=== PATIENT | male | born 1930 | race Caucasian/White ===

== ENCOUNTER 2017-07-28 15:02 | Emergency (ER) | payer OTHER, BC ==
[~2017-07-28] VITALS: Ht 172.7 cm; Wt 79.8 kg
[~2017-07-28 15:02] MED LIST: ALEVE220 MG PO; ALKA-SELTZER O1 EACH PO; ASPIRIN81 M1 PO; ASPIRIN81 M2 PO; ENALAPRIL MALEA10 MG PO; LIPITOR80 MG PO; Lipitor PO; METOPROLOL TART25 MG PO; MOTRIN600 MG PO; NYQUIL D COLD295 ML PO; PRAVASTATIN SOD40 MG PO; VASOTEC20 MG PO; Vasotec PO
[2017-07-28 15:51] LABS: HEMATOCRIT 41.1 % (38.0-50.0); HEMOGLOBIN 14.1 G/DL (12.5-16.6); MCH 30.6 PG (29.0-34.0); MCHC 34.3 G/DL (30.0-36.0); MCV 89.2 FL (86-99); PLATELET COUNT 166 K/uL (156-360); RBC DIS.WIDTH-CV 13.3 % (11.8-14.6); RBC DIS.WIDTH-SD 43.6 % (39-53); RED BLOOD COUNT 4.61 M/uL (4.00-5.50)
[2017-07-28 16:00] LABS: CHLORIDE 105 mEq/L (99-109); SODIUM 139 mEq/L (136-147)
[2017-07-28 16:02] LABS: GLUCOSE 97 mg/dL (70-99)
[2017-07-28 16:06] LABS: CREATININE 0.8 mg/dL (0.6-1.3); GFR ESTIMATE (CALCULATED) > 59 mL/min/ (58.99-99999)
[2017-07-28 16:07] LABS: UREA NITROGEN (BUN) 13 mg/dL (9-23)
[2017-07-28 16:11] LABS: TROP-I INTERPRETATION NEGATIVE; TROPONIN-I 0.06 ng/mL (0.0-0.30)
[2017-07-28] MEDS ORDERED: FLEXERIL10 MG PO (16:22)
[2017-07-28 17:10] VITALS: BP 185/90
== END 2017-07-28 17:12 | disposition home or self-care (01) ==
LOC: EME 15:02
PROVIDERS: Emergency Medicine Emergency Medical Services
DX: S29.011A Strain of muscle and tendon of front wall of thorax, initial encounter (principal); M54.9 Dorsalgia, unspecified; X58.XXXA Exposure to other specified factors, initial encounter; I10 Essential (primary) hypertension; I25.2 Old myocardial infarction; Z95.0 Presence of cardiac pacemaker; Z95.1 Presence of aortocoronary bypass graft; Z86.73 Personal history of transient ischemic attack (TIA), and cerebral infarction without residual deficits; Z79.82 Long term (current) use of aspirin; I45.10 Unspecified right bundle-branch block
CPT/HCPCS: 71046; 80048; 84484; 85027; 93005; 99281; 99284

== ENCOUNTER 2017-11-09 16:45 | Inpatient (IN) | payer OTHER, BC ==
[~2017-11-09] VITALS: Ht 172.7 cm; Wt 74.5 kg
[~2017-11-09 16:45] MED LIST changes: +FLEXERIL10 MG PO
[2017-11-09 17:22] LABS: HEMATOCRIT 40.9 % (38.0-50.0); HEMOGLOBIN 14.2 G/DL (12.5-16.6); MCH 31.1 PG (29.0-34.0); MCHC 34.7 G/DL (30.0-36.0); MCV 89.5 FL (86-99); PLATELET COUNT 183 K/uL (156-360); RBC DIS.WIDTH-CV 13.5 % (11.8-14.6); RBC DIS.WIDTH-SD 44.2 % (39-53); RED BLOOD COUNT 4.57 M/uL (4.00-5.50); WHITE BLOOD COUNT 6.9 K/uL (4.1-10.2)
[2017-11-09 17:37] LABS: ALBUMIN 4.1 g/dL (3.2-4.8)
[2017-11-09 17:38] LABS: CHLORIDE 103 mEq/L (99-109); POTASSIUM 4.5 mEq/L (3.7-5.4); SODIUM 139 mEq/L (136-147)
[2017-11-09 17:40] LABS: GLUCOSE 108 mg/dL (70-99)
[2017-11-09 17:42] LABS: TOTAL BILIRUBIN 1.5 mg/dL (0.0-1.0)
[2017-11-09 17:43] LABS: ALKALINE PHOSPHATASE 184 IU/L (3-129)
[2017-11-09 17:44] LABS: CREATININE 0.9 mg/dL (0.6-1.3); GFR ESTIMATE (CALCULATED) > 59 mL/min/ (58.99-99999)
[2017-11-09 17:45] LABS: AST (GOT) 22 IU/L (2-34); UREA NITROGEN (BUN) 15 mg/dL (9-23)
[2017-11-09 17:46] LABS: ALT (GPT) 21 IU/L (3-49)
[2017-11-09 17:47] LABS: LIPASE 8 U/L (1.0-51.0)
[2017-11-09 18:40] LABS: TROP-I INTERPRETATION NEGATIVE; TROPONIN-I 0.04 ng/mL (0.0-0.30)
[2017-11-09] MEDS ORDERED: CARVEDILOL3.125 MG PO (19:39)
[2017-11-09] MEDS ORDERED: BUSPIRONE HCL5 MG PO (19:39)
[2017-11-09] MEDS ORDERED: ALEVE220 MG PO (19:40)
[2017-11-09] MEDS ORDERED: LIDODERM 5% P1 PATCH TD (19:40)
[2017-11-09 23:09] LABS: IRON 53 MCG/DL (35-150); TRANSFERRIN (TIBC) 212.1 mg/dL (215-380); TRANSFERRIN SATUR. 25 % (20-55)
[2017-11-10] VITALS: BP 152/77
[2017-11-10 00:07] LABS: APPEARANCE CLEAR ((CLEAR)); BILIRUBIN NEGATIVE; BLOOD NEGATIVE; COLOR YELLOW ((YELLOW)); GLUCOSE (STRIP) NEGATIVE; KETONES NEGATIVE; LEUKOCYTES NEGATIVE; NITRITE NEGATIVE; PROTEIN (STRIP) NEGATIVE; SPECIFIC GRAVITY 1.039 (1.000-1.030); UCUL ADDED? NO; UROBILINOGEN 0.2 MG/DL (0.2-1.0)
[2017-11-10 00:15] VITALS: BP 152/77
[2017-11-10 03:45] VITALS: BP 129/73
[2017-11-10 06:15] LABS: BASOPHIL (%) 0.4 % (0-1); EOSINOPHIL (%) 2.7 % (0-5); EOSINOPHIL COUNT 0.1 K/uL (0-0.3); HEMATOCRIT 38.7 % (38.0-50.0); HEMOGLOBIN 12.8 G/DL (12.5-16.6); IMMATURE GRANULOCYTE (%) 0.2 % (0.0-0.7); LYMPHOCYTE (%) 28.4 % (15-42); LYMPHOCYTE COUNT 1.5 K/uL (1.0-2.8); MCH 29.7 PG (29.0-34.0); MCHC 33.1 G/DL (30.0-36.0); MCV 89.8 FL (86-99); MONOCYTE (%) 6.8 % (3-12); MONOCYTE COUNT 0.4 K/uL (0-0.8); NEUTROPHIL (%) 61.5 % (45-76); NEUTROPHIL COUNT 3.2 K/uL (1.8-6.4); PLATELET COUNT 168 K/uL (156-360); RBC DIS.WIDTH-CV 13.5 % (11.8-14.6); RBC DIS.WIDTH-SD 44.6 % (39-53); RED BLOOD COUNT 4.31 M/uL (4.00-5.50); WHITE BLOOD COUNT 5.2 K/uL (4.1-10.2)
[2017-11-10 06:40] LABS: CHLORIDE 105 MEQ/L (99-109); CREATININE 0.8 MG/DL (0.6-1.3); GFR ESTIMATE (CALCULATED) > 59 mL/min/ (58.99-99999); GLUCOSE 105 mg/dL (70-99); IRON 76 MCG/DL (35-150); POTASSIUM 4.6 MEQ/L (3.7-5.4); SODIUM 139 MEQ/L (136-147); UREA NITROGEN (BUN) 13 mg/dL (9-23)
[2017-11-10 07:39] LABS: FERRITIN 169 NG/ML (22-322)
[2017-11-10 07:44] VITALS: BP 140/80
[2017-11-10 16:32] VITALS: BP 140/70
[2017-11-10 17:06] LABS: HEMATOCRIT 44.8 % (38.0-50.0); HEMOGLOBIN 14.9 G/DL (12.5-16.6); MCV 90.1 FL (86-99)
[2017-11-10 20:23] VITALS: BP 147/67
[2017-11-11 07:52] VITALS: BP 134/64
[2017-11-11 08:15] LABS: HEMATOCRIT 42.5 % (38.0-50.0); HEMOGLOBIN 14.1 G/DL (12.5-16.6); MCV 90.2 FL (86-99)
[2017-11-11 08:39] LABS: CHLORIDE 105 MEQ/L (99-109); CREATININE 0.9 MG/DL (0.6-1.3); GFR ESTIMATE (CALCULATED) > 59 mL/min/ (58.99-99999); GLUCOSE 95 mg/dL (70-99); POTASSIUM 4.2 MEQ/L (3.7-5.4); SODIUM 139 MEQ/L (136-147); UREA NITROGEN (BUN) 12 mg/dL (9-23)
[2017-11-11] MEDS ORDERED: ARTHRITIS PAIN650 M1 PO (10:28)
[2017-11-11] MEDS ORDERED: POLYETHYLENE GL17 GM PO (10:28)
== END 2017-11-11 10:54 | disposition home health service (06) | DRG 391 ==
LOC: EME 16:45 → EDOF 22:27 → 3EAST 22:27 → ENRESERV 22:29 → CANRESERV 22:29 → ENRESERV 22:41 → 3EAST 23:55
PROVIDERS: Hospitalist; Internal Medicine
DX: K59.00 Constipation, unspecified (principal); S32.018A Other fracture of first lumbar vertebra, initial encounter for closed fracture; W19.XXXA Unspecified fall, initial encounter; Y92.007 Garden or yard of unspecified non-institutional (private) residence as the place of occurrence of the external cause; K29.01 Acute gastritis with bleeding; T39.395A Adverse effect of other nonsteroidal anti-inflammatory drugs [NSAID], initial encounter; R29.6 Repeated falls; Z91.81 History of falling; I25.5 Ischemic cardiomyopathy; I42.0 Dilated cardiomyopathy; I08.3 Combined rheumatic disorders of mitral, aortic and tricuspid valves; F03.90 Unspecified dementia, unspecified severity, without behavioral disturbance, psychotic disturbance, mood disturbance, and anxiety; I25.10 Atherosclerotic heart disease of native coronary artery without angina pectoris; I10 Essential (primary) hypertension; E78.5 Hyperlipidemia, unspecified; R63.4 Abnormal weight loss; R00.1 Bradycardia, unspecified; R26.81 Unsteadiness on feet; E66.9 Obesity, unspecified; I49.1 Atrial premature depolarization; I49.3 Ventricular premature depolarization; I65.29 Occlusion and stenosis of unspecified carotid artery; L28.0 Lichen simplex chronicus; I25.2 Old myocardial infarction; Z86.73 Personal history of transient ischemic attack (TIA), and cerebral infarction without residual deficits; Z95.1 Presence of aortocoronary bypass graft; Z95.810 Presence of automatic (implantable) cardiac defibrillator
CPT/HCPCS: 74177; 80048; 80053; 81003; 82728; 83540; 83690; 83735; 84466; 84484; 85014; 85018; 85025; 85027; 93005; 99281; 99285; C9113; J2060; J2405; J3010; J7030; J7040; S0028